=== PATIENT | male | born 2005 | race Caucasian/White ===

== ENCOUNTER 2023-07-20 11:31 | Emergency (ER) | payer MEDICAID ==
[2023-07-20] MEDS ORDERED: Sodium Chloride 0.9% 1,000 ML IV SCH (12:00)
[2023-07-20 12:09] LABS: BASOPHILS PERCENT AUTO 0.2 % (0.0-1.0); EOSINOPHILS PERCENT AUTO 0.1 % (0.0-5.0); HEMATOCRIT 40.2 % (42.0-52.0); HEMOGLOBIN 13.5 gm/dl (14.0-18.0); IMMATURE GRAN ABSOLUTE AUTO 0.04 K/mm3 (0.00-0.05); IMMATURE GRAN PERCENT AUTO 0.3 % (0.0-0.4); LYMPHOCYTES ABSOLUTE AUTO 2.2 K/mm3 (2.0-8.8); LYMPHOCYTES PERCENT AUTO 14.8 % (50.0-65.0); MEAN CORPUSCULAR HEMOGLOBIN 28.9 pg (28.0-32.0); MEAN CORPUSCULAR HGB CONC 33.6 g/dl (32.0-36.0); MEAN CORPUSCULAR VOLUME 86.1 fl (83.0-99.0); MEAN PLATELET VOLUME 9.8 fl (9.4-12.4); MONOCYTES ABSOLUTE AUTO 1.1 K/mm3 (0.1-1.4); MONOCYTES PERCENT AUTO 7.1 % (2.0-10.0); NEUTROPHILS ABSOLUTE AUTO 11.4 K/mm3 (1.5-8.5); NEUTROPHILS PERCENT AUTO 77.5 % (35.0-45.0); PLATELET COUNT,PLT 276 K/mm3 (150-400); RED BLOOD CELL COUNT 4.67 M/mm3 (4.52-5.90); WHITE BLOOD CELL COUNT,WBC 14.71 K/mm3 (4.5-13.5)
[2023-07-20 12:41] LABS: A/G RATIO 1.3 (1-2); ALBUMIN 4.5 g/dl (3.4-5.0); ANION GAP 9.6 (5-15); BILIRUBIN TOTAL 0.5 mg/dL (0.2-1.0); CALCIUM 9.9 mg/dL (8.5-10.1); CREATININE 0.8 mg/dL (0.7-1.3); EST CRCL DRUG DOSING (CG) 143.69 mL/min; POTASSIUM,K 3.6 mEq/L (3.5-5.1); TSH 1.636 uIU/mL (0.516-4.13)
[2023-07-20 13:36] LABS: BARBITURATE SCREEN,URINE NEGATIVE (CUTOFF=200); BENZODIAZEPINES SCREEN,URINE NEGATIVE (CUTOFF=150); BUPRENORPHINE SCREEN,URINE NEGATIVE (CUTOFF=10); METHADONE SCREEN, URINE NEGATIVE (CUT0FF=200); METHAMPHETAMINES SCREEN, URINE NEGATIVE (CUTOFF=500); OXYCODONE SCREEN,URINE NEGATIVE (CUT0FF=100); THC SCREEN,URINE 20 NG/ML NEGATIVE (CUTOFF=50)
[2023-07-20 13:37] LABS: AMPHETAMINES SCREEN, URINE NEGATIVE (CUTOFF=500)
== END 2023-07-20 14:50 | disposition home or self-care (01) ==
LOC: JD.ED 11:31
DX: F11.20 Opioid dependence, uncomplicated (principal); Z88.0 Allergy status to penicillin
CPT/HCPCS: 36415; 80053; 80143; 80179; 80306; 80307; 84443; 85025; 96360; 96361; 99284; J7030